=== PATIENT | male | born 1990 | race Caucasian/White ===

== ENCOUNTER 2018-02-11 10:03 | Emergency (ER) | payer SELFPAY ==
[~2018-02-11] VITALS: Ht 167.6 cm; Wt 113.4 kg
== END 2018-02-11 12:41 | disposition home or self-care (01) ==
LOC: ED 10:03
DX: T63.441A Toxic effect of venom of bees, accidental (unintentional), initial encounter (principal); Z91.030 Bee allergy status; Y92.89 Other specified places as the place of occurrence of the external cause